=== PATIENT | female | born 1990 | race African-American/Black ===

== ENCOUNTER 2020-09-14 00:25 | Emergency (ER) | payer BC, OTHER ==
[2020-09-14] MEDS ORDERED: Fluorescein Opthalmic Strip ONE (01:10)
[2020-09-14] MEDS ORDERED: Proparacaine 0.5% Opth 15 ML BOT ONE (01:10)
[2020-09-14] MEDS ORDERED: Erythromycin Base 0.5% Oint 1 GM TUBE ONE (02:40)
== END 2020-09-14 03:06 | disposition home or self-care (01) ==
LOC: ERS 00:25
DX: S05.01XA Injury of conjunctiva and corneal abrasion without foreign body, right eye, initial encounter (principal); X58.XXXA Exposure to other specified factors, initial encounter; F17.210 Nicotine dependence, cigarettes, uncomplicated
CPT/HCPCS: 99283

== ENCOUNTER 2021-03-22 16:17 | Emergency (ER) | payer BC ==
[2021-03-22] MEDS ORDERED: Fluorescein Opthalmic Strip ONE (17:28)
[2021-03-22] MEDS ORDERED: Proparacaine 0.5% Opth 15 ML BOT ONE (17:28)
== END 2021-03-22 18:00 | disposition home or self-care (01) ==
LOC: ERS 16:17
DX: T15.01XA Foreign body in cornea, right eye, initial encounter (principal); F17.210 Nicotine dependence, cigarettes, uncomplicated
CPT/HCPCS: 65205